=== PATIENT | female | born 1985 | race Two or more races ===

== ENCOUNTER 2020-09-18 12:33 | Emergency (ER) | payer OTHER ==
[~2020-09-18] VITALS: Ht 154.9 cm; Wt 40.4 kg
[~2020-09-18 12:33] MED LIST: PRILOSEC10 MG; ZANTAC150 M1
[2020-09-18] MEDS ORDERED: PRENA1 TRUE CO1 EACH (12:55)
== END 2020-09-18 16:13 | disposition home or self-care (01) ==
LOC: ER 12:33
DX: O20.8 Other hemorrhage in early pregnancy (principal); O43.891 Other placental disorders, first trimester; Z3A.01 Less than 8 weeks gestation of pregnancy; Z03.818 Encounter for observation for suspected exposure to other biological agents ruled out

== ENCOUNTER 2021-07-22 08:08 | Outpatient (CLI) | payer OTHER ==
[~2021-07-22 08:08] MED LIST changes: +PRENA1 TRUE CO1 EACH
== END 2021-07-22 08:13 | disposition home or self-care (01) ==
LOC: SONOGRAMA 08:08 → MAMO-SONO 08:15
PROVIDERS: ATTEND Obstetrics & Gynecology Gynecology
DX: I10 Essential (primary) hypertension (principal); N92.1 Excessive and frequent menstruation with irregular cycle

== ENCOUNTER 2021-07-22 10:23 | Outpatient (CLI) | payer OTHER | END 2021-07-22 10:31 | disposition home or self-care (01) | LOC: LAB 10:23 | PROVIDERS: ATTEND Obstetrics & Gynecology Gynecology | DX: N39.0 Urinary tract infection, site not specified (principal); D64.89 Other specified anemias; N92.1 Excessive and frequent menstruation with irregular cycle ==

== ENCOUNTER → 2021-08-04 07:46 | Outpatient (CLI) | payer OTHER | END | disposition home or self-care (01) | LOC: LAB 07:46 | PROVIDERS: ATTEND Obstetrics & Gynecology Gynecology | DX: E03.8 Other specified hypothyroidism (principal); E55.9 Vitamin D deficiency, unspecified; E78.5 Hyperlipidemia, unspecified; Z12.11 Encounter for screening for malignant neoplasm of colon; N39.0 Urinary tract infection, site not specified ==

== ENCOUNTER 2021-10-17 09:02 | Outpatient (CLI) | payer OTHER | END 2021-10-17 09:10 | disposition home or self-care (01) | LOC: SONOGRAMA 09:02 | PROVIDERS: ATTEND Internal Medicine Gastroenterology | DX: R10.84 Generalized abdominal pain (principal) ==

== ENCOUNTER 2024-10-20 05:22 | Day surgery (SDC) | payer OTHER ==
[2024-10-17 11:33] VITALS: BP 110/74
[~2024-10-20] VITALS: Ht 154.9 cm; Wt 45.4 kg
[~2024-10-20 05:22] MED LIST changes: +ANIMAL CHEWS1 EACH PO; +PEPCID AC20 MG PO; +PROBIOTIC1 EAC4 PO
[2024-10-20] MEDS ORDERED: POVIDONE-IODINE 118 ML BOTT TOP ONE (11:00)
[2024-10-20] MEDS ORDERED: IBU600 MG PO (11:36)
== END 2024-10-20 15:05 | disposition home or self-care (01) ==
LOC: CIR.AMB 05:22
PROVIDERS: ATTEND Obstetrics & Gynecology Gynecology
DX: N80.03 Adenomyosis of the uterus (principal); N84.0 Polyp of corpus uteri; N72 Inflammatory disease of cervix uteri; Z88.0 Allergy status to penicillin

== ENCOUNTER 2025-03-12 11:00 | Inpatient (IN) | payer OTHER ==
[~2025-03-12] VITALS: Ht 154.9 cm; Wt 42.6 kg
[~2025-03-12 11:00] MED LIST changes: +IBU600 MG PO
[2025-03-12 13:05] LABS: RH POSITIVE
[2025-03-12 13:44] VITALS: BP 99/54
[2025-03-12 13:47] VITALS: BP 113/77
[2025-03-16] MEDS ORDERED: METRONIDAZOLE/SODIUM CHLORIDE 500 MG/100 ML PIGGYBACK IV ONE ×2 (08:10→16:14)
[2025-03-16] MEDS ORDERED: POVIDONE-IODINE 118 ML BOTT TOP ONE (09:45)
[2025-03-16] MEDS ORDERED: HEMOSTATIC MATRIX 1 KIT KIT TOP ONE (11:43)
[2025-03-16] MEDS ORDERED: SURGIFLO APPLICATOR 1 EACH APPL TOP ONE (11:44)
[2025-03-16] MEDS ORDERED: ONDANSETRON HCL 2 MG/ML VIAL IV PRN (12:30)
[2025-03-16] MEDS ORDERED: RINGERS SOLUTION,LACTATED 1,000 ML IV SCH (12:30)
[2025-03-16] MEDS ORDERED: MORPHINE SULFATE 4 MG/ML VIAL IV PRN (12:30)
[2025-03-16] MEDS ORDERED: MORPHINE SULFATE 4 MG/ML VIAL IV ONE (13:25)
[2025-03-16] MEDS ORDERED: MORPHINE SULFATE 4 MG,MORPHINE SULFATE 2 MG IV PRN (14:00)
[2025-03-16 16:21] LABS: HEMOGLOBIN 11.8 g/dL (12.0-15.00); MEAN CELL VOLUME 90.7 fL (80.00-100.00); MEAN CORPUSCULAR HEMOGLOBIN 29.8 pg (27.00-32.0); MEAN CORPUSCULAR HGB CONC 32.8 g/dl (32.0-36.0); PLATELET COUNT 209 K/uL (150-450); RED BLOOD COUNT 3.97 M/uL (4.00-6.00); RED CELL DISTRIBUTION WIDTH 12.6 % (11.5-14.5)
[2025-03-16 16:50] VITALS: BP 99/54
[2025-03-16] MEDS ORDERED: METRONIDAZOLE/SODIUM CHLORIDE 500 MG/100 ML PIGGYBACK IV SCH (17:00)
[2025-03-16 23:41] VITALS: BP 100/62; O2SAT 99
[2025-03-17] MEDS ORDERED: IBU800 MG PO (07:01)
[2025-03-17] MEDS ORDERED: NEURONTIN300 MG PO (07:01)
[2025-03-17 08:00] VITALS: BP 96/63
[2025-03-17] MEDS ORDERED: ENOXAPARIN SODIUM 40 MG/0.4 ML SYRINGE SUBCUTANEO SCH (09:00)
== END 2025-03-17 10:32 | disposition home or self-care (01) | DRG 743 ==
LOC: O/R 03-16 06:05 → SURH 03-16 09:15 → OB/GYN 03-16 13:28
PROVIDERS: ADMIT Obstetrics & Gynecology Gynecology; ATTEND Obstetrics & Gynecology Gynecology
PROC: 0UT74ZZ Resection of Bilateral Fallopian Tubes, Percutaneous Endoscopic Approach (ICD-10-PCS; 2025-03-16)
PROC: 0UT94ZZ Resection of Uterus, Percutaneous Endoscopic Approach (ICD-10-PCS; principal; 2025-03-16 09:15)
DX: D25.0 Submucous leiomyoma of uterus (principal); D25.1 Intramural leiomyoma of uterus; N92.1 Excessive and frequent menstruation with irregular cycle